=== PATIENT | female | born 1955 | race Caucasian/White ===

== ENCOUNTER 2024-11-27 12:53 | Outpatient (CLI) | payer OTHER | END 2024-11-27 12:54 | disposition home or self-care (01) | LOC: SCSMRI 12:53 | PROVIDERS: ATTEND Orthopaedic Surgery | DX: M48.062 Spinal stenosis, lumbar region with neurogenic claudication (principal); M47.817 Spondylosis without myelopathy or radiculopathy, lumbosacral region; M47.816 Spondylosis without myelopathy or radiculopathy, lumbar region; M47.814 Spondylosis without myelopathy or radiculopathy, thoracic region; M47.815 Spondylosis without myelopathy or radiculopathy, thoracolumbar region | CPT/HCPCS: 72148 ==